=== PATIENT | male | born 1955 | race Caucasian/White ===

== ENCOUNTER 2020-05-12 05:59 | Day surgery (SDC) | payer MEDICARE ==
[2020-05-07 10:53] LABS: CREATININE 1.1 mg/dL (0.5-1.5); POTASSIUM 4.8 mmol/L (3.5-5.1)
[2020-05-07 11:22] VITALS: BP 145/82
[~2020-05-12] VITALS: Ht 175.3 cm; Wt 124.3 kg
[2020-05-12] VITALS (10 sets, daily range): BP systolic 111–161; BP diastolic 54–100
[~2020-05-12 05:59] MED LIST: CHRM1TAB PO; LISI-613 PO; MVIT PO; NAPR220C15 PO; TURM500C9 PO
[2020-05-12] MEDS ORDERED: CEFAZOLIN SODIUM 1 GM VIAL IVP SCH (06:00)
[2020-05-12] MEDS ORDERED: LACTATED RINGERS 1000ML 1,000 ML IV ONE (06:10)
[2020-05-12] MEDS ORDERED: CEFAZOLIN SODIUM 1 GM VIAL ONE (07:07)
[2020-05-12] MEDS ORDERED: LIDOCAINE HCL MDV 0.5% 50ML VIAL IJ ONE (07:50)
[2020-05-12] MEDS ORDERED: MIDAZOLAM HCL 1 MG/ML 2ML VIAL ONE ×2 (07:52→08:03)
[2020-05-12] MEDS ORDERED: MEPERIDINE-PF 25 MG/ML SYG ONE (07:53)
[2020-05-12] MEDS ORDERED: DEXAMETHASONE SOD PHOSPHATE 10MG/ML 1ML VIAL ONE (07:54)
[2020-05-12] MEDS ORDERED: PROPOFOL 10 MG/ML 20ML VIAL IV ONE (07:54)
[2020-05-12] MEDS ORDERED: FENTANYL CITRATE PF 50 MCG/1 ML 2ML VIAL ONE (07:54)
[2020-05-12] MEDS ORDERED: ONDANSETRON HCL 4 MG/2 ML VIAL ONE (07:54)
[2020-05-12] MEDS ORDERED: KETOROLAC TROMETHAMINE 30MG/ML ONE (08:24)
[2020-05-12] MEDS ORDERED: BUPIVACAINE/PF 0.25% 30ML VIAL IJ ONE (08:47)
[2020-05-12] MEDS ORDERED: CEPH500B PO (09:02)
[2020-05-12] MEDS ORDERED: ACET1TAB25 PO (09:02)
== END 2020-05-12 10:18 | disposition home or self-care (01) ==
LOC: DAH 05:59
PROVIDERS: ATTEND Orthopaedic Surgery
DX: M65.311 Trigger thumb, right thumb (principal); Z20.828 Contact with and (suspected) exposure to other viral communicable diseases; I10 Essential (primary) hypertension; E66.01 Morbid (severe) obesity due to excess calories; Z98.890 Other specified postprocedural states; Z85.828 Personal history of other malignant neoplasm of skin; Z82.49 Family history of ischemic heart disease and other diseases of the circulatory system; Z90.89 Acquired absence of other organs; Z87.891 Personal history of nicotine dependence; Z72.89 Other problems related to lifestyle; Z68.41 Body mass index [BMI] 40.0-44.9, adult
CPT/HCPCS: 26055; 36415; 80048; A4215; A4221; A4222; A4223; A4663; A4930; A6223; A6445; C9803; J0690 ×2; J1100; J1885; J2175; J2250 ×2; J2405; J2704; J3010; J3490 ×2; J7120 ×2; U0003

== ENCOUNTER → 2022-09-10 | Outpatient (CLI) | payer MEDICARE ==
[~2022-09-10] MED LIST changes: +ACET-2079 PO; +CEPH500B PO; -LISI-613 PO; +LISI20TA24 PO
== END | disposition home or self-care (01) ==
LOC: RAH 08:38
PROVIDERS: ATTEND Student in an Organized Health Care Education/Training Program
DX: S83.241A Other tear of medial meniscus, current injury, right knee, initial encounter (principal); M23.91 Unspecified internal derangement of right knee; X58.XXXA Exposure to other specified factors, initial encounter; Y93.89 Activity, other specified; Y92.89 Other specified places as the place of occurrence of the external cause; Y99.8 Other external cause status
CPT/HCPCS: 73721

== ENCOUNTER 2022-10-01 05:48 | Day surgery (SDC) | payer MEDICARE ==
[2022-09-29 09:55] LABS: BASOPHILS % (AUTO) 0.3 % (0.0-5.0); EOSINOPHILS % (AUTO) 2.3 % (0.0-8.0); HEMATOCRIT 46.3 % (42-54); LYMPHOCYTES % (AUTO) 31.5 % (21.0-51.0); MEAN CORPUSCULAR HEMOGLOBIN 28.5 pg (27.0-33.0); MEAN CORPUSCULAR HGB CONC 32.6 g/dL (32.0-36.0); MEAN CORPUSCULAR VOLUME 87.4 fL (79-99); MONOCYTES % (AUTO) 6.2 % (3.0-13.0); NEUTROPHILS % (AUTO) 59.1 % (40.0-77.0); PLATELET COUNT (AUTO) 240 K/uL (130-400); RED CELL DISTRIBUTION WIDTH 13.1 % (11.0-15.5); WHITE BLOOD COUNT (AUTO) 8.7 K/uL (4.8-10.8)
[2022-09-29 10:05] VITALS: BP 169/85
[2022-09-29 10:07] LABS: CARBON DIOXIDE 28 mmol/L (21-32); CHLORIDE 102 mmol/L (101-111); CREATININE 1.1 mg/dL (0.5-1.5); CRP QUANTITATIVE < 2.00 mg/L (0.00-9.0); GLOMERULAR FILTR. RATE CALC 75 mL/min (>90); GLUCOSE,RANDOM 127 mg/dL (70-105); POTASSIUM 4.4 mmol/L (3.5-5.1); SODIUM SERUM 138 mmol/L (136-145); UREA NITROGEN, BLOOD 13 mg/dL (7-18)
[~2022-10-01] VITALS: Ht 175.3 cm; Wt 128.5 kg
[2022-10-01] VITALS (18 sets, daily range): BP systolic 100–140; BP diastolic 59–80
[~2022-10-01 05:48] MED LIST changes: -ACET-2079 PO; -CEPH500B PO; -CHRM1TAB PO; -MVIT PO; +NAPR-1174 PO; -NAPR220C15 PO; +PRED5DRO25 OP; +SEMA1PEN3 SQ; -TURM500C9 PO
[2022-10-01] MEDS ORDERED: LACTATED RINGERS 1000ML 1,000 ML IV ONE (06:18)
[2022-10-01] MEDS ORDERED: CEFAZOLIN SODIUM 1 GM VIAL ONE (06:18)
[2022-10-01] MEDS ORDERED: BUPIVACAINE/PF 0.25% 30ML VIAL IJ ONE ×2 (06:50→08:10)
[2022-10-01] MEDS ORDERED: FAMOTIDINE 20MG VIAL IV ONE (07:01)
[2022-10-01] MEDS ORDERED: LIDOCAINE PF 100MG/5ML (2%) SYRINGE 5ML ONE ×2 (07:52→09:17)
[2022-10-01] MEDS ORDERED: MIDAZOLAM HCL 1 MG/ML 2ML VIAL ONE (07:52)
[2022-10-01] MEDS ORDERED: ROCURONIUM 10MG/1ML SYR 10 MG/ML ML ONE (07:52)
[2022-10-01] MEDS ORDERED: SUCCINYLCHOLINE 200MG/10ML SYR ONE (07:52)
[2022-10-01] MEDS ORDERED: NEOSTIGMINE 5MG/5ML SYR IV ONE (07:52)
[2022-10-01] MEDS ORDERED: PROPOFOL 10 MG/ML 20ML VIAL IV ONE (07:52)
[2022-10-01] MEDS ORDERED: GLYCOPYRROLATE 1 MG/5 ML SYRINGE ONE (07:52)
[2022-10-01] MEDS ORDERED: ONDANSETRON 4MG INJ ONE (07:52)
[2022-10-01] MEDS ORDERED: FENTANYL CITRATE PF 50 MCG/1 ML 2ML VIAL ONE (07:53)
[2022-10-01] MEDS ORDERED: CEFAZOLIN SODIUM 3 GM VIAL IVPB ONE (08:02)
[2022-10-01] MEDS ORDERED: MEPERIDINE-PF 25 MG/ML SYG ONE ×3 (08:26→09:56)
[2022-10-01] MEDS ORDERED: ACET-2079 PO (09:30)
== END 2022-10-01 11:35 | disposition home or self-care (01) ==
LOC: DAH 05:48
PROVIDERS: ATTEND Student in an Organized Health Care Education/Training Program
DX: M23.321 Other meniscus derangements, posterior horn of medial meniscus, right knee (principal); Z20.822 Contact with and (suspected) exposure to COVID-19; M23.351 Other meniscus derangements, posterior horn of lateral meniscus, right knee; M22.41 Chondromalacia patellae, right knee; M65.861 Other synovitis and tenosynovitis, right lower leg; M13.861 Other specified arthritis, right knee; I10 Essential (primary) hypertension; Z88.8 Allergy status to other drugs, medicaments and biological substances; Z98.890 Other specified postprocedural states; Z85.828 Personal history of other malignant neoplasm of skin; Z90.89 Acquired absence of other organs; Z87.891 Personal history of nicotine dependence; Z82.49 Family history of ischemic heart disease and other diseases of the circulatory system; Z79.899 Other long term (current) drug therapy
CPT/HCPCS: 82040; 80048; 85025; 84134; 86140; 87426; 36415; 29880; 97161; 97116; 97530; A4663; A4649 ×3; J0690 ×2; J7120; J3490 ×4; J3010; J0330; J2710; J2001 ×2; J2250; J2704; J2405; J2175 ×3; A6223; A5120; A4215; A4223; A4222; A4221; A6450

== ENCOUNTER → 2024-05-08 | Outpatient (CLI) | payer MEDICARE ==
[~2024-05-08] MED LIST changes: +ACET-2079 PO; +MIDAZOLAM HCL 1 MG/ML 2ML VIAL ONE
--- NOTE | 2024-05-08 10:00 | NUR ---
MRI LUMBAR SPINE WITH CONSCIOUS SEDATION PATIENT TOLERATED PROCEDURE WELL. HEPLOCK REMOVED AND PATIENT RECOVERED IN RADIOLOGY ROOM. DISCHARGE INSTRUCTIONS GIVEN AND VERBALIZED UNDERSTANDING. DISCHARGED VIA AMBULATION AT 1000. AAO X3 WITH NO C/O DISCOMFORT.
--- NOTE | 2024-05-08 10:06 | HMCIMG ---
MR SPINAL CANAL, LUMBAR WO CON HISTORY: Back pain COMPARISON: None TECHNIQUE: MRI of the lumbar spine was performed utilizing multiple pulse sequences in axial , coronal and sagittal plane. Patient was not given contrast through intravenous route. FINDINGS: No abnormal signal intensity is seen of the visualized bony structure. No loss of vertebral height is seen. There is straightening of normal lumbar curvature which may be related to muscle spasm or positioning. Degenerative disc signals are present at L2-3 through L5-S1 levels. Visualized distal conus is unremarkable. There is left renal cyst measuring 3.8 cm. At the L2-3 level, there is spondylotic disc with bilateral ligamentum flavum hypertrophy causing anterior thecal sac compression with bilateral lateral recess stenosis and without associated neural foraminal stenosis. The thecal sac measures approximately 7 mm in its anterior posterior dimension. At the L3-4 level, there is spondylotic disc with central disc herniation/extrusion and bilateral ligamentum flavum hypertrophy causing anterior thecal sac compression with minimal bilateral lateral recess stenosis and bilateral neural foraminal stenosis. The thecal sac measures approximately 5.5 mm in its anterior posterior dimension. At the L4-5 level, there is spondylotic disc with annular disc bulge and bilateral ligamentum flavum hypertrophy causing anterior thecal sac compression with bilateral lateral recess stenosis and bilateral neural foraminal stenosis. The thecal sac measures approximately 4.7 mm in its anterior posterior dimension. At the L5-S1 level, there is spondylotic disc with bilateral facet hypertrophy causing anterior thecal sac compression with bilateral lateral recess stenosis and minimal bilateral neural foraminal stenosis. The thecal sac measures approximately 7.2 mm in its anterior posterior dimension. IMPRESSION: 1. DJD with lumbar spine spondylosis and central canal narrowing worse at L3-4 and L4-5 levels as described above.
== END | disposition home or self-care (01) ==
LOC: RAH 07:30
PROVIDERS: ATTEND Family Medicine
DX: M47.817 Spondylosis without myelopathy or radiculopathy, lumbosacral region (principal); M48.07 Spinal stenosis, lumbosacral region; M51.369 Other intervertebral disc degeneration, lumbar region without mention of lumbar back pain or lower extremity pain; M54.9 Dorsalgia, unspecified
CPT/HCPCS: 72148; J2250

== ENCOUNTER → 2024-06-08 | Outpatient (CLI) | payer MEDICARE ==
[~2024-06-08] MED LIST changes: -MIDAZOLAM HCL 1 MG/ML 2ML VIAL ONE
--- NOTE | 2024-06-11 07:41 | HMCSR ---
APPROVED REPORT EXAM: Two-dimensional and M-mode echocardiogram with Doppler and color Doppler. INDICATION ICD: R00.0 Tachycardia; unspecified 2D Dimensions RVDd3.8 cmLVEF(%)50.7 (>50%)LVED Vol(simp.)104.0 mL IVSd0.9 (0.7-1.1cm)FS(%)26 %LVES Vol(simp.)52.0 mL LVDd5.4 (3.8-5.6cm)Ao Root(2D)3.6 (2.0-3.7cm)LVEF(%, simp.)50 % PWd0.8 (0.7-1.1cm)LVOT diam2.2 (1.8-2.4cm)LA ESV INDEX (BP)18.46 mL/m2 LVDs4.0 (2.5-4.0cm)IVC diam1.9 cm Aortic Valve AoV Vmax1.2 m/Deon Peak GR5.5 mmHgLVOT Vmax1.0 m/s AoV VTI0.3 mAo Mean GR3.3 mmHgLVOT VTI0.22 m ALEXANDR (VMAX)3.3 cm2AVA (VTI) 3.3 cm2 Mitral Valve MV E Vmax52.8 cm/sDECEL Rpbr876 ms MV A Vmax77.9 cm/sP 1/2 T51 ms E/A ratio0.7MVA (PHT)4.3 cm2 TDI E/E' Medial6.2E/E' Lateral5.9 Pulmonary Valve PV Vmax1.0 m/sPV VTI0.18 mPV Mean GR2 mmHg PV Peak GR3.9 mmHg Tricuspid Valve RAP (EST) 8 mmHg Left Ventricle Left ventricular cavity size is normal. There is normal left ventricular wall thickness. LVEF is 50-5 5%. No left ventricle thrombus noted on this study. Grade 1 diastolic dysfunction Right Ventricle The right ventricle is normal size. The right ventricular systolic function is normal. Atria The left atrium size is normal. The right atrium size is normal. Aortic Valve Aortic valve is trileaflet. Aortic valve leaflets are sclerotic but open well. Trace aortic regurgita tion. There is no aortic valvular stenosis. Mitral Valve Mitral valve leaflets are mildly sclerotic but open well. Mitral regurgitation is trace. There is no mitral valve stenosis. Tricuspid Valve The tricuspid valve leaflets appear normal. There is trace tricuspid regurgitation. Pulmonic Valve Pulmonic valve is not well visualized. There is trace pulmonic valvular regurgitation. Great Vessels The aortic root is normal in size. IVC is dilated and collapses >50% with inspiration. Pericardium No pericardial effusion. Conclusion Left ventricular cavity size is normal. LVEF is 50-55%. Grade 1 diastolic dysfunction The right ventricle is normal size. The left atrium size is normal. Aortic valve is trileaflet. Aortic valve leaflets are sclerotic but open well. Trace aortic regurgitation. Mitral valve leaflets are mildly sclerotic but open well. Mitral regurgitation is trace. There is trace tricuspid regurgitation. The aortic root is normal in size. IVC is dilated and collapses >50% with inspiration. No pericardial effusion.
== END | disposition home or self-care (01) ==
LOC: SHCH 15:02
PROVIDERS: ATTEND Internal Medicine Cardiovascular Disease
DX: R00.0 Tachycardia, unspecified (principal)
CPT/HCPCS: 93306

== ENCOUNTER → 2024-06-22 | Outpatient (CLI) | payer OTHER ==
--- NOTE | 2024-06-22 14:02 | HMCIMG ---
CT CORONARY CALCIFICATION SCORING: Anatomic images were reviewed. The calcium score is being generated and reported separately. This report is for the visualized anatomy only. Visualized portions of the lungs are clear. Hilar and mediastinal structures appear normal. Osseous structures are unremarkable. Impression: 1. Negative noncardiac anatomic findings. 2. The calcium score is 310.3 consistent with a significant degree of calcified plaque. This is 65th percentile for a patient this age. CT was performed with one or more following dose reduction techniques: automated exposure control, adjustment of the mA and kv according to patient's size, or use of a iterative reconstruction technique.
== END | disposition home or self-care (01) ==
LOC: RAH 12:45
PROVIDERS: ATTEND Internal Medicine Cardiovascular Disease
DX: Z13.6 Encounter for screening for cardiovascular disorders (principal); I25.10 Atherosclerotic heart disease of native coronary artery without angina pectoris
CPT/HCPCS: 75571

== ENCOUNTER → 2025-05-21 | Outpatient (CLI) | payer MEDICARE ==
--- NOTE | 2025-05-22 10:40 | HMCIMG ---
Left BREAST ULTRASOUND: Left: Real-time examination of the [right/left] breast demonstrates homogeneous echotexture throughout the breast. Left breast at 1:00 superficial there is a lipoma hypoechoic 2.0 x 0.7 x 2.1 cm. The remaining left breast has no mass seen.. IMPRESSION: In the area of concern demonstrate lipoma at 6:00 as described above. FINAL ASSESSMENT: ACR: BI-RAD- 2. Benign Finding.
--- NOTE | 2025-05-22 10:42 | HMCIMG ---
DIGITAL bilateral DIAGNOSTIC MAMMOGRAM Technique: The digital mammographic examination of both breasts in craniocaudal, mediolateral oblique views along with CAD was obtained. Ultrasound left breast was obtained. History: This is a 69 years year-old male with complaining of left breast lump. Patient has no family history of breast cancer. Patient has no complaint Reference:Baseline. Breast composition: Breast composition A: The breasts are almost entirely fatty. Finding: The digital mammographic examination of both breasts in craniocaudal and mediolateral oblique view along with CAD demonstrates involutional fatty changes. Ultrasound demonstrate a lipoma in left breast at 6:00 measuring 2 cm.. There is no evidence of any dendritic mass, cluster microcalcification or architectural distortion. The retromammary fat appears to be normal. IMPRESSION: Ultrasound demonstrate a lipoma in left breast which is not seen on the mammogram. NO RADIOGRAPHIC EVIDENCE OF MALIGNANT CHANGES. . FINAL ASSESSMENT: ACR: BI-RAD- 2. Benign Finding. NOTE: IF A WORK-UP OF THIS PATIENT LEADS TO A BIOPSY, PLEASE FORWARD A COPY OF THE PATHOLOGY REPORT TO OUR OFFICE REQUIRED BY [employer] E[employer]ECTIVE MARCH 06, 1994. A NEGATIVE MAMMOGRAM SHOULD NOT PRECLUDE BIOPSY OF A CLINICALLY PALPABLE SUSPICIOUS MASS, 10% OF BREAST CANCERS ARE MAMMOGRAPHICALLY OCCULT. THIS MAMMOGRAPHY FACILITY IS FULLY ACCREDITED BY THE FOOD AND DRUG [employer]RATION (FDA). THANK YOU FOR THIS REFERRAL.
== END | disposition home or self-care (01) ==
LOC: RAH 13:25
PROVIDERS: ATTEND Family Medicine
DX: N63.21 Unspecified lump in the left breast, upper outer quadrant (principal); R92.313 Mammographic fatty tissue density, bilateral breasts; D17.79 Benign lipomatous neoplasm of other sites
CPT/HCPCS: 76642; 77066